=== PATIENT | female | born 1965 | race Two or more races ===

== ENCOUNTER → 2025-03-28 | Outpatient (CLI) | payer MEDICAID, SELFPAY ==
--- NOTE | 2025-03-28 11:45 | XR_ITS ---
Examination: Screening digital mammography, bilateral Computer aided detection 3-D breast Tomosynthesis, bilateral Date and time of exam: 03/28/2025, 11:13 AM Comparisons: 2015 through March 2024 Indications: Screening Technique: Nonmagnified MLO, CC views of the breasts to been obtained, reconstructed from 3-D Tomosynthesis images. R2 computer aided detection program utilized for evaluation of suspicious masses and/or abnormal calcifications. 3-D Tomosynthesis images obtained. Technologist: Findings: There are scattered areas of fibroglandular density. No evidence of abnormal masses or suspicious calcifications. Impression: BI-RADS category 1: Negative findings (within normal) Recommend 1 year follow-up mammogram
== END | disposition home or self-care (01) ==
LOC: CDIM 10:58
PROVIDERS: Referring Provider Nurse Practitioner Primary Care; Visit Provider Nurse Practitioner Primary Care
DX: Z12.31 Encounter for screening mammogram for malignant neoplasm of breast (principal); R92.313 Mammographic fatty tissue density, bilateral breasts
CPT/HCPCS: 77063; 77067

== ENCOUNTER 2025-05-01 06:45 | Day surgery (SDC) | payer MEDICAID, SELFPAY ==
[2025-05-01] VITALS (8 sets, daily range): BP systolic 105–160; BP diastolic 73–102; PULSE 67–99; RESP 10–19; TEMP 36.6–36.8; O2SAT 90–100
[2025-05-01] MEDS: BENZOCAINE 20% (Hurricaine) SPRAY 1 DOSE TOP (09:16)
[2025-05-01] MEDS: RINGERS LACTATED 500 ML 500 ML 20 ML IV (09:16)
[2025-05-01] MEDS: MIDAZOLAM INJ 1 MG/ML VIAL 2 ML (ASD USE ONLY) 2 MG IVP (09:20)
[2025-05-01] MEDS: fentaNYL CIT INJ 50 mCg/ML AMP 2ML (ASD USE ONLY) IVP (09:20)
== END 2025-05-01 10:20 | disposition home or self-care (01) ==
PROVIDERS: PCP Physician Assistant; Referring Provider Internal Medicine Gastroenterology; Visit Provider Internal Medicine Gastroenterology
PROC: (CPT 43239; principal; 2025-05-01 08:15)
DX: K21.01 Gastro-esophageal reflux disease with esophagitis, with bleeding (principal); K44.9 Diaphragmatic hernia without obstruction or gangrene; I10 Essential (primary) hypertension; K22.89 Other specified disease of esophagus; E78.5 Hyperlipidemia, unspecified; K29.51 Unspecified chronic gastritis with bleeding
CPT/HCPCS: 43239; A4649; J1200; J2250; J3010; J7120; A9270

== ENCOUNTER 2025-05-13 08:10 | Day surgery (SDC) | payer MEDICAID, SELFPAY ==
[2025-05-12 13:15] VITALS: BMI 29.6
[2025-05-13] VITALS (13 sets, daily range): BP systolic 114–149; BP diastolic 73–97; PULSE 63–78; RESP 13–20; TEMP 36.2–36.8; O2SAT 95–100
[2025-05-13] MEDS: fentaNYL CIT INJ 50 mCg/ML AMP 2ML (ASD USE ONLY) IVP (10:10)
[2025-05-13] MEDS: RINGERS LACTATED 500 ML 500 ML 20 ML IV (10:10)
[2025-05-13] MEDS: MIDAZOLAM INJ 1 MG/ML VIAL 2 ML (ASD USE ONLY) 2 MG IVP (10:10)
[2025-05-13] MEDS: SIMETHICONE 40 MG/0.6 ML ORAL SYRINGE PO (10:13)
== END 2025-05-13 11:09 | disposition home or self-care (01) ==
PROVIDERS: PCP Nurse Practitioner Primary Care; Referring Provider Internal Medicine Gastroenterology; Visit Provider Internal Medicine Gastroenterology
PROC: 0DBE8ZX Excision of Large Intestine, Via Natural or Artificial Opening Endoscopic, Diagnostic (ICD-10-PCS; CPT 45380; principal; 2025-05-13 07:30)
DX: D12.5 Benign neoplasm of sigmoid colon (principal); D12.4 Benign neoplasm of descending colon; K64.9 Unspecified hemorrhoids; K57.30 Diverticulosis of large intestine without perforation or abscess without bleeding; I10 Essential (primary) hypertension
CPT/HCPCS: 45385; 45380; A4649; J1200; J2250; J3010; J7120; A9270